=== PATIENT | female | born 1930 | race Two or more races ===

== ENCOUNTER 2016-06-27 21:51 | Emergency (ER) | payer OTHER, BC ==
[2016-06-27 22:03] VITALS: BP 139/76; PULSE 87; TEMP 98.2; BMI 18.2
--- NOTE | 2016-06-27 22:51 | PDOC ---
History of Present Illness - General Chief Complaint: Blood Sugar Problem Stated Complaint: ELEVATED GLUCOSE Time Seen by Provider: 06/27/16 21:54 - History of Present Illness Initial Comments: This 86-year-old woman with a history of hypertension/type II DM/gastric carcinoma presents with fingerstick glucose is greater than 400 for the last day. Patient states that she generally checks her fingersticks at 10 AM and 4 PM. Today, however over 400. There is been no change in diabetic medication ( metformin only) or diet. She denies fever/chills, cough, vomiting/diarrhea or new pain. Patient has had intermittent nausea chronically since start of chemotherapy (approximately one year ago). There is been no edema/redness of skin or nonhealing ulcer. Patient and family deny any previous hospitalizations for blood sugar control or other complications of diabetes. Patient and family do not recall any recent A1c values. 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 Past History - Past Medical History Allergies/Adverse Reactions: Allergies Allergy/AdvReac Type Severity Reaction Status Date / Time Penicillins Allergy Verified 06/27/16 21:54 Home Medications: Ambulatory Orders Amlodipine Besylate 10 mg PO DAILY 06/27/16 Bisacodyl [Dulcolax -] 5 mg PO DAILY 06/27/16 Cyanocobalamin [Vitamin B12 -] 1,000 mcg PO DAILY 06/27/16 Dexamethasone 4 mg PO DAILY 06/27/16 Docusate Sodium [Colace -] 200 mg PO HS 06/27/16 Lactulose 30 gm PO DAILY 06/27/16 Lisinopril [Prinivil] 20 mg PO DAILY 06/27/16 Metformin HCl [Metformin HCl ER] 1,000 mg PO DAILY 06/27/16 Polyethylene Glycol 3350 [Miralax (For Daily Use) -] 17 gm PO DAILY PRN Prochlorperazine Maleate 10 mg PO TID PRN 06/27/16 Tramadol HCl [Ultram] 100 mg PO BID 06/27/16 Anemia: Yes (THROMBOCYTOPENIA, AGRANULOCYTOSIS) Cancer: Yes (METASTATIC LUNG, NEUROENDOCRINE) Cardiac Disorders: Yes (ATYPICAL CHEST PAIN, ABNORMAL EKG) Diabetes: Yes GI Disorders: Yes (CONSTIPATION,H-PYLORI GASTRITIS) HTN: Yes Hypercholesterolemia: Yes Other medical history: OSTEOARTHRITIS - Psycho/Social/Smoking Cessation Hx Anxiety: No Suicidal Ideation: No Smoking History: Never smoked Review of Systems - Review of Systems Able to Perform ROS?: Yes Comments:: 12 point review of systems is negative except for what is noted in the history of present illness *Physical Exam - Vital Signs Last Vital Signs Temp Pulse Resp BP Pulse Ox 98.2 F 87 18 139/76 100 06/27/16 22:01 06/27/16 22:01 06/27/16 22:01 06/27/16 22:01 06/27/16 22:01 - Physical Exam Comments: GENERAL: The patient is awake, alert, and fully oriented, in no acute distress. Vital signs as noted. HEAD: Normal with no signs of trauma. EYES: Pupils equal, round and reactive to light, extraocular movements intact, sclera anicteric, conjunctiva clear with no pallor. ENT: moist mucous membranes. Ears normal, nares patent, oropharynx clear without exudates. NECK: Normal range of motion, supple without lymphadenopathy, JVD, or masses. LUNGS: Breath sounds equal, clear to auscultation bilaterally. No wheeze/ crackles. HEART: Regular rate and rhythm, normal S1 and S2 without murmur or rub. ABDOMEN: Soft/nontender/nondistended. BS wnl. No guarding or rebound. No palpable masses. No hepatosplenomegaly. EXTREMITIES: Normal range of motion, no edema. No clubbing or cyanosis. No cords, erythema, or tenderness. NEUROLOGICAL: Cranial nerves II through XII grossly intact. Normal speech, normal gait. PSYCH: Normal mood, normal affect. SKIN: Warm, Dry, normal turgor, no rashes or lesions noted. ED Treatment Course - LABORATORY CBC & Chemistry Diagram: 06/27/16 23:25 06/27/16 23:25 Medical Decision Making - Medical Decision Making 06/28/16 00:14 CBC/chemistry profile notable for random glucose of 399; also evidence of prerenal azotemia with BUN of 24 and creatinine of 0.8. Other than mild anemia, laboratory evaluation is essentially normal 6 units regular insulin administered intravenously. 500 mL of normal saline bolus given. 06/28/16 01:40 Repeat fingerstick glucose is 226 Qualitative serum acetone is negative Patient will be discharged with follow-up with her general medical doctor. Although the patient has a scheduled appointment with her doctor next week, patient and her family instructed to contact her PMD tomorrow to review hermilo' s visit to the emergency room. Meanwhile, she should drink plenty of water and continue medications/ fingersticks as previously. She should make sure that she maintains diabetic diet. If she has fever or lethargy, she should return to the emergency room *DC/Admit/Observation/Transfer Diagnosis at time of Disposition: Hyperglycemia without ketosis - Discharge Dispostion Disposition: HOME Condition at time of disposition: Stable - Referrals Referrals: Nette Allen [Primary Care Provider] - Call tomorrow - Patient Instructions Printed Discharge Instructions: DI for Hyperglycemia -- Adult Additional Instructions: Continue medications as prescribed Drink plenty of water Continue diabetic diet as previously/check blood sugars Call your general doctor tomorrow regarding today's ER visit Follow-up with general doctor as planned Return to ER if you have fever/pain/lightheadedness or extreme fatigue
[2016-06-27 23:40] LABS: BASOPHIL 0.2 % (0-2.0); MCH 34.1 pg (25.7-33.7); MCHC 33.5 g/dl (32.0-36.0); MEAN CELL VOLUME 101.6 fl (80-96); MEAN PLT VOLUME 7.8 fl (7.5-11.1); NEUTROPHILS 82.2 % (42.8-82.8); PLATELET COUNT 97 K/MM3 (134-434); RDW 15.3 % (11.6-15.6); WHITE BLOOD COUNT 5.1 K/mm3 (4.0-10.0)
[2016-06-27 23:42] LABS: PH,URINE 5.5 (4.5-8); URINE APPEARANCE CLEAR; URINE BILIRUBIN NEGATIVE (NEGATIVE); URINE BLOOD NEGATIVE (NEGATIVE); URINE COLOR YELLOW; URINE GLUCOSE (UA) 3+ (NEGATIVE); URINE KETONE NEGATIVE (NEGATIVE); URINE LEUK ESTERASE NEGATIVE (NEGATIVE); URINE NITRITE NEGATIVE (NEGATIVE); URINE PROTEIN NEGATIVE (NEGATIVE); URINE UROBILINOGEN NORMAL (0.2-1.0)
[2016-06-27 23:47] LABS: ALBUMIN 3.5 g/dl (3.5-5.0); ALK PHOS 38 U/L (32-92); ANION GAP 8 (8-16); BILIRUBIN,TOTAL 0.7 mg/dl (0.2-1.0); CALCIUM 8.6 mg/dl (8.4-10.2); CO2 24 mmol/L (22-28); CREATININE 0.8 mg/dl (0.6-1.3); SGOT/AST 11 U/L (10-42); SGPT/ALT 14 U/L (10-40); TOT PROT 5.9 g/dl (6.4-8.3)
[2016-06-27 23:49] LABS: GLUCOSE,RANDOM 399 mg/dl (74-106)
[2016-06-28] MEDS ORDERED: INSULIN REGULAR HUMAN 100 UNITS/ML *VIAL IVPUSH ONE
[2016-06-28] MEDS ORDERED: SODIUM CHLORIDE 500 ML IV STA (00:01)
[2016-06-28] MEDS ORDERED: INSULIN REGULAR HUMAN 100 UNITS/ML *VIAL ONE (00:04)
== END 2016-06-28 01:37 | disposition home or self-care (01) ==
LOC: FER 21:51
PROC: 3E0337Z Introduction of Electrolytic and Water Balance Substance into Peripheral Vein, Percutaneous Approach (ICD-10-PCS; principal; 2016-06-27)
PROC: 3E033VG Introduction of Insulin into Peripheral Vein, Percutaneous Approach (ICD-10-PCS; 2016-06-27)
DX: E11.65 Type 2 diabetes mellitus with hyperglycemia (principal); I10 Essential (primary) hypertension; Z85.00 Personal history of malignant neoplasm of unspecified digestive organ; D69.6 Thrombocytopenia, unspecified; K59.00 Constipation, unspecified; E78.00 Pure hypercholesterolemia, unspecified; Z79.84 Long term (current) use of oral hypoglycemic drugs
CPT/HCPCS: 36415; 80053; 81003; 82009; 85025; 99283-25